=== PATIENT | female | born 1995 | race Caucasian/White ===

== ENCOUNTER 2019-09-06 09:28 | Outpatient (REF) | payer MEDICAID, SELFPAY ==
[2019-09-06 20:46] LABS: TSH (W/Ref FT4) 2.37 uIU/mL (0.36-3.74)
== END 2019-09-06 09:48 ==
LOC: NCHCN 09:28
PROVIDERS: PCP Family Medicine; Visit Provider Family Medicine
DX: R63.4 Abnormal weight loss (principal)
CPT/HCPCS: 84443

== ENCOUNTER 2021-01-14 16:52 | Outpatient (REF) | payer MEDICAID, SELFPAY ==
--- NOTE | 2021-01-14 14:45 | PAPFT_PTH ---
PATIENT: Lou Juarez LOC: [facility]#:[id number] AGE/SX: 25/F ROOM: RE01/14/[address]: Janeth Taylor : 1995 BED: DIS: 01/14/2021 SPEC #: [id number] RECD: 01/15/21 13:05 STATUS: DION REWilfrido #: [id number] MAHESH: 01/14/21 14:[address]: Janeth Taylor DEPT: [facility] Cytology RECD BY: Nataliia Mcclelland Tissues: 1 - CX/ENDOCX FOR PAP SMEARS Procedures: PAP THIN PREP/[facility] Screening Comments: [id number] (CHLAMYDIA/GC)
[2021-01-16 15:25] LABS: Chlamydia Result Negative (Negative); GC Result Negative (Negative)
== END 2021-01-14 16:53 | disposition home or self-care (01) ==
LOC: NCHCN 16:52
PROVIDERS: PCP Family Medicine; Visit Provider Family Medicine
DX: Z12.4 Encounter for screening for malignant neoplasm of cervix (principal); Z11.3 Encounter for screening for infections with a predominantly sexual mode of transmission
CPT/HCPCS: 87491; 87591; 88142

== ENCOUNTER 2023-12-27 13:29 | Outpatient (REF) | payer MEDICAID, SELFPAY ==
--- NOTE | 2023-12-27 11:45 | PAPFT_PTH ---
PATIENT: Lou Juarez LOC: [facility] U#:[id number] AGE/SX: 28/F ROOM: RE12/27/[address]: Janeth Taylor : 1995 BED: DIS: 12/27/2023 SPEC #: [id number] RECD: 12/28/23 13:01 STATUS: DION WOODS #: [id number] MAHESH: 12/27/23 11:[address]: Janeth Taylor [facility]PT[facility] Cytology RECD BY: Nataliia Mcclelland Tissues: 1 - CX/ENDOCX FOR PAP SMEARS Procedures: PAP THIN PREP/[facility] Screening Comments: [id number]
--- OUTSIDE RECORDS SUMMARY | 2023-12-27 13:31 | XMS_ITS ---
Author Organization Unknown Address [address] [place] [address] [phone] Phone Care Team Providers Care Staffing Branch Manager Name Role Phone DONNA Jacome Attending Unavailable Results [facility]* - Stephen ect Date/Time: 04/07/2021 15:50 [facility] ID: [id number] [address] [place] [address], [phone] LOINC: 24389-6 Test Value Unit Reference Range Code Code System Flag SOURCE= Anterior nasal Tier- EXPOSURE SARS COV2 RNA: NEGATIVE REFERENCE RAN GE: NEGAT 85929-6 LOINC Social History Type Status Start Date End Date Code Code Syst em Smoking History Former smoker 2740678 SNOMED CT Sex Female Medications Medication Start Date End Date Route Frequency Dose Code Code System Medication Instructions Home Meds LAMICTAL 25MG ORAL TABLET 08/05/2018 Unknown ORAL THREE TIMES A DAY 200 MILLIGRAMS RxNorm TAKE 200 MILLIGRAMS ORAL THREE TIMES A DAY Hospital Discharge Instructions Should you have any questions prior to discharge, please contact a member of your healthcare team. If you have left the hospital and have any questions, please contact your primary care physician. Reason For Referral No Data Found Allergies and Adverse Reactions Allergy Substance Reaction Severity Start Date Concern Status Co de Code System No Known Allergies Moderate Active Plan of Treatment EXPOSURE 08/18/2021 EXPOSURE 04/07/2021 Encounters Encounter Diagnosis Start Date Code Code Sys tem Exposure to SARS-CoV-2 04/07/2021 921007450 SNOME D-CT Personal Care Team Section Performer Name Performer Role Active Date Inactive Da te
--- OUTSIDE RECORDS SUMMARY | 2023-12-27 13:32 | XMS_ITS ---
Author Organization Unknown Address [address] [place] [address] [phone] Phone Care Team Providers Care Educational Programming Director Name Role Phone J LUIS CHRISTIN Attending Unavailable YEHUDA Jacome Primary Unavailable Results LAMOTRIGINE (LAMICTAL)* - Co llect Date/Time: 08/11/2022 12:33 [facility] ID: [id number] [address] [place] [address], [phone] LOINC: 6948-4 Test Value Unit Reference Range Code Code System Flag Lamotrigine, S 8.2 3.0-15.0 6948-4 LOINC TSH THYROID STIMULATING HORM ONE* - Collect Date/Time: 08/11/2022 12:33 [facility] ID: [id number] [address] [place] [address], 5661 LOINC: 3014-8 Test Value Unit Reference Range Code Code System Flag TSH 1.788 uIU/mL L=0.360 H=3.740 3014-8 LOINC COMPREHENSIVE METABOLIC PANE L (CMP) - Collect Date/Time: 08/11/2022 12:33 [facility] ID: [id number] [address] [place] [address], 5661 LOINC: 23214-3 Test Value Unit Reference Range Code Code System Flag GLUCOSE 90 mg/dL L=70 H=116 2345-7 LOINC BUN 14 mg/dL L=6 H=25 3094-0 LOINC CREATININE 1.03 mg/dL L=0.51 H=0.95 2160-0 LOINC H SODIUM SERUM 140 mmol/L L=136 H=145 2951-2 LOINC POTASSIUM SERUM 4.1 mmol/L L=3.4 H=5.2 2823-3 LOINC CHLORIDE SERUM 102 mmol/L L=96 H=110 2075-0 LOINC CARBON DIOXIDE (CO2) 29 mmol/L L=22 H=34 2028-9 LOINC ANION GAP 8.9 mmol/L 29462-4 LOINC CALCIUM SERUM 9.6 mg/dL L=8.2 H=10.2 37166-4 LOINC BILIRUBIN TOTAL 0.6 mg/dL L=0.0 H=1.3 1975-2 LOINC ALK. PHOS. 75 U/L L=46 H=116 6768-6 LOINC SGOT (AST) 17 U/L L=15 H=37 1920-8 LOINC SGPT (ALT) 14 U/L L=12 H=78 1742-6 LOINC TOTAL PROTEIN 7.5 gm/dL L=6.0 H=8.0 2885-2 LOINC ALBUMIN 4.6 gm/dL L=3.4 H=5.0 1751-7 LOINC AGE 26 years eGFR (non-Afr.Amer.) 65 mL/min 48984-3 LOINC eGFR (Afr-Burkinan) 78 mL/min 95227-7 LOINC CBC W/ DIFFERENTIAL* - Colle ct Date/Time: 08/11/2022 12:33 [facility] ID: [id number] [address] [place], [place], 56 LOINC: 35922-9 Test Value Unit Reference Range Code Code System Flag WBC 8.60 th/cmm L=5.00 H=10.00 6690-2 LOINC NEUT % 71.1 % L=40.0 H=80.0 LYMPH % 21.4 % L=10.0 H=50.0 MONO % 6.6 % L=2.0 H=12.0 75296-9 LOINC EOS % 0.3 % L=0.0 H=8.0 BASO % 0.3 % L=0.0 H=3.0 IG % 0.3 % L=0.0 H=1.1 2514-8 LOINC NRBC % 0.0 % L=0.0 H=0.0 65720-5 LOINC NEUT abs count 6.1 th/cmm L=1.6 H=8.4 751-8 LOINC LYMPH abs count 1.8 th/cmm L=1.5 H=4.0 731-0 LOINC MONO abs count 0.6 th/cmm L=0.2 H=1.0 742-7 LOINC EOS abs count 0.0 th/cmm L=0.0 H=0.5 711-2 LOINC BASO abs count 0.0 th/cmm L=0.0 H=0.2 704-7 LOINC IG abs count 0.0 th/cmm L=0.0 H=0.1 15103-5 LOINC NRBC abs count 0.0 mil/cmm L=0.0 H=0.0 94169-8 LOINC RBC 4.11 mil/cmm L=3.90 H=5.40 789-8 LOINC HEMOGLOBIN 13.7 gm/dL L=12.0 H=16.0 718-7 LOINC HEMATOCRIT 42 % L=37 H=47 4544-3 LOINC MCV 102 fL L=82 H=92 787-2 LOINC H MCH 33.3 pg L=27.0 H=31.0 785-6 LOINC H MCHC 32.6 % L=32.0 H=36.0 786-4 LOINC RDW-SD 51.0 fL L=39.0 H=49.0 788-0 LOINC H PLATELET COUNT 257 th/cmm L=150 H=450 777-3 LOINC Social History Type Status Start Date End Date Code Code Syst em Smoking History Former smoker [id number] SNOMED CT Sex Female Medications Medication Start [...] Diagnosis Start Date Code Code Sys tem Other fatigue 08/11/2022 SNOMED-CT Personal Care Team Section Performer Name Performer Role Active Date Inactive Da te
--- OUTSIDE RECORDS SUMMARY | 2023-12-27 13:32 | XMS_ITS ---
Author Organization Unknown Address [address] [place] [address] [phone] Phone Care Team Providers Care Electromechanisms Design Drafter Name Role Phone J LUIS WALLER Attending Unavailable Results LAMOTRIGINE (LAMICTAL)* - Co llect Date/Time: 08/25/2021 16:44 [facility] ID: [id number] [address] [place] [address], [phone] LOINC: 6948-4 Test Value Unit Reference Range Code Code System Flag Lamotrigine, S 8.1 2.5 - 15.0 6948-4 LOINC Social History Type Status Start Date End Date Code Code Syst em Smoking History Former smoker [id number] SNOMED CT Sex Female Medications Medication Start [...] Diagnosis Start Date Code Code Sys tem Generalized idiopathic epile psy and epileptic syndromes, not intractable, without status epilepticus 08/25/2021 SNOMED-CT Personal Care Team Section Performer Name Performer Role Active Date Inactive Da te
--- OUTSIDE RECORDS SUMMARY | 2023-12-27 13:32 | XMS_ITS ---
Author Organization Unknown Address [address] [place] [address] [phone] Phone Care Team Providers Care Entry Driver Operator Name Role Phone DONNA Jacome Attending Unavailable Results [facility]* - Stephen ect Date/Time: 08/18/2021 10:18 [facility] ID: [id number] [address] [place] [address], [phone] LOINC: 55315-1 Test Value Unit Reference Range Code Code System Flag Tier- EXPOSURE 79674-8 LOINC SARS COV2 RNA: POSITIVE REFERENCE RANGE: NEGAT 07578-8 L OINC A Social History Type Status Start Date End Date Code Code Syst em Smoking History Former smoker 7613227 SNOMED CT Sex Female Medications Medication Start [...] Diagnosis Start Date Code Code Sys tem COVID-19 08/18/2021 806497829 SNOMED-CT Personal Care Team Section Performer Name Performer Role Active Date Inactive Da te
[2023-12-31 13:54] LABS: Chlamydia Result Negative (Negative); GC Result Negative (Negative)
== END 2023-12-27 13:30 | disposition home or self-care (01) ==
LOC: NCHCN 13:29
PROVIDERS: PCP Family Medicine; Visit Provider Family Medicine
DX: Z12.4 Encounter for screening for malignant neoplasm of cervix (principal)
CPT/HCPCS: 87491; 87591; 88142